=== PATIENT | female | born 1985 | race Caucasian/White ===

== ENCOUNTER 2021-01-08 10:53 | Observation (INO) | payer OTHER ==
[~2021-01-08] VITALS: Ht 170.2 cm; Wt 122.7 kg
[2021-01-08 11:12] VITALS: BP 138/78
[2021-01-08 11:25] LABS: MICROSCOPIC INDICATED
[2021-01-08] MEDS ORDERED: OXYcodone/APAP 5/325MG TABLET ONE (11:30)
[2021-01-08] MEDS ORDERED: OXYcodone/APAP 5/325MG TABLET PO PRN (11:30)
[2021-01-08 11:49] LABS: MICROSCOPIC INDICATED
[2021-01-08] MEDS ORDERED: MORPHINE SULFATE 4 MG/ML, 1ML ONE (12:20)
[2021-01-08] MEDS ORDERED: ONDANSETRON 2MG/ML, 2ML ONE (12:21)
[2021-01-08] MEDS: MORPHINE SULFATE 4 MG/ML, 1ML IVPush PRN ×6 (12:24→22:57)
[2021-01-08] MEDS: LACTATED RINGERS 1,000 ML IV SCH ×3 (12:25→16:45)
[2021-01-08] MEDS ORDERED: ONDANSETRON 2MG/ML, 2ML IVPush PRN (12:30)
[2021-01-08 12:50] LABS: BASOPHILS % (AUTO) 0 % (0-1); EOSINOPHILS % (AUTO) 0 % (1-7); LYMPHOCYTES % (AUTO) 12 % (22-44); MEAN CORPUSCULAR HEMOGLOBIN 28.7 pg (27.0-34.8); MEAN CORPUSCULAR HGB CONC 33.7 g/dL (32.4-35.8); MEAN PLATELET VOLUME 8.8 fL (7.4-10.4); MONOCYTES % (AUTO) 5 % (2-9); NEUTROPHILS % (AUTO) 83 % (42-75); PLATELET COUNT 354 x10^3/uL (130-400); RED BLOOD COUNT 4.62 x10^6/uL (3.82-5.3); RED CELL DISTRIBUTION WIDTH 14.3 % (9.6-15.2)
== END 2021-01-09 10:24 | disposition home or self-care (01) ==
LOC: LDOP 10:53 → LDIP 13:49
PROVIDERS: ADMIT Student in an Organized Health Care Education/Training Program; ATTEND Student in an Organized Health Care Education/Training Program
DX: O99.891 Other specified diseases and conditions complicating pregnancy (principal); M54.5 Low back pain; O09.513 Supervision of elderly primigravida, third trimester; Z3A.35 35 weeks gestation of pregnancy; Z79.899 Other long term (current) drug therapy
CPT/HCPCS: 36415; 59025; 76770; 81001; 85025; 87086; 96361; 96374; 96375; 96376; G0378; G0379; J2270; J2405; J7120; 96360